=== PATIENT | male | born 2000 | race Caucasian/White ===

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

== ENCOUNTER 2022-09-20 09:51 | Emergency (ER) | payer MEDICAID, OTHER ==
[~2022-09-20] VITALS: Ht 177.8 cm; Wt 56.2 kg
[2022-09-20] MEDS ORDERED: KETOROLAC TROMETHAMINE 15 MG INJ ONE (10:14)
[2022-09-20] MEDS ORDERED: ONDANSETRON 4 MG/2 ML VIAL ONE (10:14)
[2022-09-20] MEDS ORDERED: FAMOTIDINE. 20 MG/2 ML VIAL IV ONE ×2 (10:14→10:15)
[2022-09-20] MEDS ORDERED: ONDANSETRON 4 MG/2 ML VIAL IV ONE (10:15)
[2022-09-20] MEDS ORDERED: IV NORMAL SALINE 1000 ML BAG IV ONE (10:15)
[2022-09-20] MEDS ORDERED: KETOROLAC TROMETHAMINE 15 MG INJ IVP ONE (10:15)
[2022-09-20 10:19] LABS: HEMATOCRIT 42.3 % (36.7-47.1); MEAN CORPUSCULAR HEMOGLOBIN 28.9 uug (23.8-33.4); MEAN CORPUSCULAR VOLUME 87.5 fL (73.0-96.2); PLATELET COUNT (AUTO) 192 K/uL (152-348)
[2022-09-20 10:27] LABS: CREATININE 1.1 mg/dL (0.6-1.3); POTASSIUM 3.8 mmol/L (3.5-5.1)
--- NOTE | 2022-09-20 10:30 | NUR ---
Pt seen by
[2022-09-20 10:41] LABS: BILIRUBIN,DIRECT 0.2 mg/dL (0.0-0.2); BILIRUBIN,TOTAL 1.2 mg/dL (0.2-1.0)
[2022-09-20] MEDS ORDERED: LOPE2CAP14 PO (11:05)
[2022-09-20] MEDS ORDERED: ONDA4TAB11 PO (11:05)
[2022-09-20 11:14] VITALS: BP 101/46
== END 2022-09-20 11:14 | disposition home or self-care (01) ==
LOC: ER 09:51
DX: R11.10 Vomiting, unspecified (principal); R19.7 Diarrhea, unspecified; D72.829 Elevated white blood cell count, unspecified
CPT/HCPCS: 99284; 96374; 96375; 96361; 80076; 80048; 83690; 85025; 36415; J3490; J1885; J2405; J7040; A4663

== ENCOUNTER 2022-10-08 22:34 | Emergency (ER) | payer OTHER ==
[~2022-10-08] VITALS: Ht 175.3 cm; Wt 55.3 kg
[~2022-10-08 22:34] MED LIST: LOPE2CAP14 PO; ONDA4TAB11 PO
--- NOTE | 2022-10-08 23:09 | NUR ---
Dr Ko into eval patient.
[2022-10-09] MEDS ORDERED: IBUP-1955 PO (00:08)
--- NOTE | 2022-10-09 00:18 | NUR ---
Patient discharged to home in stable condition. Written and verbal after care instructions given. Patient verbalizes understanding of instructions. Stressed follow up or return to ER for worsening s/s. Patient walked out with steady gait.
[2022-10-09 00:25] VITALS: BP 122/76
== END 2022-10-09 00:26 | disposition home or self-care (01) ==
LOC: ER 22:34
DX: S90.111A Contusion of right great toe without damage to nail, initial encounter (principal); Z79.1 Long term (current) use of non-steroidal anti-inflammatories (NSAID); Z79.899 Other long term (current) drug therapy; W20.8XXA Other cause of strike by thrown, projected or falling object, initial encounter; Y93.89 Activity, other specified; Y92.89 Other specified places as the place of occurrence of the external cause; Y99.8 Other external cause status
CPT/HCPCS: 11740; 73660; A4663